=== PATIENT | male | born 1970 | race Caucasian/White ===

== ENCOUNTER 2020-07-01 14:57 | Inpatient (IN) | payer OTHER ==
[2020-07-01] MEDS ORDERED: morphine SULFATE 4 MG/ML VIAL IVPUSH ONE (15:02)
[2020-07-01] MEDS ORDERED: morphine CARPU-JECT 4 MG/1 ML DISP.SYRIN IVPUSH ONE ×2 (15:02→21:24)
[2020-07-01] MEDS ORDERED: SODIUM CHLORIDE 1,000 ML IV STA ×2 (15:02→18:26)
[2020-07-01] MEDS ORDERED: ONDANSETRON 4 MG/2 ML VIAL IVPUSH ONE (15:03)
[2020-07-01] MEDS ORDERED: morphine SULFATE 4 MG/ML VIAL ONE ×2 (15:34→16:29)
[2020-07-01 15:41] LABS: EOS % 0.2 % (0-4.5); HEMATOCRIT 49.5 % (35.4-49); HEMOGLOBIN 16.5 GM/dl (11.7-16.9); LYMPH % 7.7 % (8-40); MCH 31.6 pg (25.7-33.7); MCHC 33.3 g/dl (32.0-35.9); MEAN CELL VOLUME 94.9 fl (80-96); MEAN PLT VOLUME 7.9 fl (7.5-11.1); MONO % 2.8 % (3.8-10.2); NEUT % 86.3 % (42.8-82.8); PLATELET COUNT 326 K/MM3 (134-434); RBC 5.22 M/mm3 (4.00-5.60); RDW 12.8 % (11.9-15.9); WHITE BLOOD COUNT 10.9 K/mm3 (4.0-10.8)
[2020-07-01 15:48] LABS: INR 1.07 (0.82-1.09); PROTHROMBIN TIME (PATIENT) 11.9 SEC (10.2-13.0)
[2020-07-01 15:50] VITALS: BMI 34.4
[2020-07-01 15:58] LABS: ALBUMIN 4.9 g/dl (3.4-5.0); ALK PHOS 60 U/L (45-117); ANION GAP 13 MMOL/L (8-16); CALCIUM 10.1 mg/dl (8.5-10); CHLORIDE 105 mmol/L (98-107); CO2 19 mmol/L (21-32); CREATININE 0.9 mg/dl (0.55-1.3); GLUCOSE,RANDOM 138 mg/dl (74-106); POTASSIUM 3.7 mmol/L (3.5-5.1); SGOT/AST 30 U/L (15-37); SGPT/ALT 35 U/L (13-61); SODIUM 137 mmol/L (136-145); TOT PROT 7.6 g/dl (6.4-8.2)
[2020-07-01 17:29] LABS: LIPASE 142 U/L (73-393)
[2020-07-01] MEDS ORDERED: METOCLOPRAMIDE HCL INJECTION 10 MG/2 ML VIAL IVPB ONE (18:26)
[2020-07-01] MEDS ORDERED: FAMOTIDINE 20 MG/50 ML IVPB 20 MG/50 ML MG IVPB ONE ×2 (18:26→18:32)
[2020-07-01] MEDS ORDERED: METOCLOPRAMIDE HCL INJECTION 10 MG/2 ML VIAL ONE (18:32)
[2020-07-01 19:46] LABS: EPITHELIAL CELLS RARE /hpf
[2020-07-01] MEDS ORDERED: ASPIRIN 81 MG CHEWABLE TABLETS PO ONE (20:30)
[2020-07-01] MEDS ORDERED: ASPIRIN 325 MG TABLET PO ONE (20:45)
[2020-07-01] MEDS ORDERED: ASPIRIN 325 MG TABLET ONE (22:14)
[2020-07-01] MEDS ORDERED: oxyCODONE HCL 5 MG TABLET PO PRN (23:36)
[2020-07-02] MEDS: HYDROmorphone HCl 2 MG/ML VIAL IVPB ONE ×2 (09:42→09:48)
[2020-07-02] MEDS: FAMOTIDINE 20 MG/50 ML IVPB 20 MG/50 ML MG IVPB SCH ×2 (09:43→21:07)
[2020-07-02 10:00] LABS: BASO % 1.7 % (0-2.0); EOS % 0.5 % (0-4.5); HEMATOCRIT 42.2 % (35.4-49); HEMOGLOBIN 13.6 GM/dl (11.7-16.9); LYMPH % 19.7 % (8-40); MCH 30.5 pg (25.7-33.7); MCHC 32.2 g/dl (32.0-35.9); MEAN CELL VOLUME 94.8 fl (80-96); MEAN PLT VOLUME 8.3 fl (7.5-11.1); MONO % 9.3 % (3.8-10.2); NEUT % 68.8 % (42.8-82.8); PLATELET COUNT 321 K/MM3 (134-434); RBC 4.45 M/mm3 (4.00-5.60); RDW 12.6 % (11.9-15.9); WHITE BLOOD COUNT 11.2 K/mm3 (4.0-10.8)
[2020-07-02] MEDS ORDERED: ASPIRIN 81 MG CHEWABLE TABLETS PO SCH (10:00)
[2020-07-02 10:04] LABS: ALBUMIN 3.8 g/dl (3.4-5.0); CALCIUM 8.6 mg/dl (8.5-10); CREATININE 0.8 mg/dl (0.55-1.3); POTASSIUM 3.4 mmol/L (3.5-5.1); TOT PROT 6.4 g/dl (6.4-8.2)
[2020-07-02] MEDS ORDERED: HYDROmorphone HCl 2 MG/ML VIAL IVPB ONE (10:15)
[2020-07-02] MEDS ORDERED: chlordiazePOXIDE HCL 25 MG CAPSULE PO PRN (12:12)
[2020-07-02] MEDS ORDERED: POTASSIUM CHLORIDE TABS 20 MEQ TABLET.ER (FP) PO ONE (12:30)
[2020-07-02] MEDS: ENOXAPARIN NA (PORCINE) 40 MG/0.4 ML DISP.SYRIN SQ SCH (12:42)
[2020-07-02] MEDS: ONDANSETRON 4 MG/2 ML VIAL IVPUSH PRN ×2 (12:43→18:50)
[2020-07-02] MEDS ORDERED: MELATONIN 5 MG TABLETS PO ONE (20:54)
[2020-07-02] MEDS: DOCUSATE SODIUM 100 MG CAPSULE (FP) PO PRN (20:59)
[2020-07-02] MEDS ORDERED: ATORVASTATIN CA 10 MG TABLET (FP) PO SCH (22:00)
[2020-07-02] MEDS: ACETAMINOPHEN 325 MG TABLET (FP) PO PRN (23:34)
[2020-07-03] MEDS: ONDANSETRON 4 MG/2 ML VIAL IVPUSH PRN ×2 (00:02→06:38)
[2020-07-03] MEDS: ACETAMINOPHEN 325 MG TABLET (FP) PO PRN (06:36)
[2020-07-03 08:27] LABS: CALCIUM 9.5 mg/dl (8.5-10); CREATININE 1.1 mg/dl (0.55-1.3); POTASSIUM 3.9 mmol/L (3.5-5.1)
[2020-07-03] MEDS ORDERED: PANTOPRAZOLE 40 MG TABLET PO SCH (10:00)
[2020-07-03] MEDS: DOCUSATE SODIUM 100 MG CAPSULE (FP) PO PRN (13:18)
[2020-07-03] MEDS: ENOXAPARIN NA (PORCINE) 40 MG/0.4 ML DISP.SYRIN SQ SCH (13:30)
[2020-07-03 13:45] VITALS: TEMP 98
[2020-07-03 14:03] VITALS: BP 144/80; PULSE 62
== END 2020-07-03 17:00 | disposition home or self-care (01) | DRG 392 ==
LOC: FER 14:57 → FM/S 22:56
PROVIDERS: ADMIT Internal Medicine; ATTEND Nurse Practitioner Acute Care
PROC: 0DB78ZX Excision of Stomach, Pylorus, Via Natural or Artificial Opening Endoscopic, Diagnostic (ICD-10-PCS; principal; 2020-07-03 12:24)
DX: K29.20 Alcoholic gastritis without bleeding (principal); F10.288 Alcohol dependence with other alcohol-induced disorder; R10.13 Epigastric pain; E78.00 Pure hypercholesterolemia, unspecified; M54.2 Cervicalgia; G89.29 Other chronic pain; D72.829 Elevated white blood cell count, unspecified
CPT/HCPCS: 36415; 71045-TC-FY; 74177-TC; 80048; 80053; 80061; 80307; 81003; 81015; 82550; 82553; 83036; 83605; 83690; 83735; 84484; 85025; 85610; 87086; 88305-TC; 93005; 93306-TC; 99285-25; C9803; Q9967; U0003; U0005